=== PATIENT | male | born 1960 | race Caucasian/White ===

== ENCOUNTER 2021-04-26 21:59 | Emergency (ER) | payer BC ==
[~2021-04-26] VITALS: Ht 182.9 cm; Wt 136.1 kg
[2021-04-26] MEDS ORDERED: GLUMETZA1000 (22:26)
[2021-04-26] MEDS ORDERED: HYDROCHLOROTHIA25 M1 (22:27)
[2021-04-26] MEDS ORDERED: LOSARTAN PO (22:27)
[2021-04-26] MEDS ORDERED: LEVO-T25 MCG (22:28)
[2021-04-26] MEDS ORDERED: GLIMEPIRIDE1 MG (22:28)
[2021-04-26] MEDS ORDERED: NORVASC5 MG (22:29)
[2021-04-26] MEDS ORDERED: LOVASTATIN 20 M20 MG PO (22:29)
[2021-04-27 02:27] LABS: HEMATOCRIT 40.5 % (42.0-52.0); HEMOGLOBIN 13.6 gm/dL (14.0-18.0); MCHC 33.6 g/dL (28.0-37.0); MCV 83.4 fL (80.0-100.0); MPV 9.6 fl. (7.2-11.1); NUCLEATED RBCS 0 /100WBC; PLATELET COUNT* 240 thou/uL (150-400); RBC 4.86 mil/uL (4.50-6.00); RDW-CV 13.7 % (10.5-14.5); WBC 12.1 thou/uL (4.0-11.0)
[2021-04-27 02:34] LABS: URINE BILIRUBIN NEGATIVE (Negative); URINE BLOOD 2+ (Negative); URINE CLARITY CLEAR; URINE COLOR YELLOW; URINE GLUCOSE-RANDOM 1+ (Negative); URINE KETONES 2+ (Negative); URINE LEUKOCYTES-REFLEX NEGATIVE (Negative); URINE NITRITE-REFLEX NEGATIVE (Negative); URINE PROTEIN NEGATIVE (Negative); URINE SPECIFIC GRAVITY >= 1.030 (1.005-1.030); URINE UROBILINOGEN 0.2 E.U./dl (0.2-1.0)
[2021-04-27 02:35] LABS: CALCIUM 9.5 mg/dL (8.5-10.1); CREATININE 1.5 mg/dL (0.6-1.3); POTASSIUM 3.6 mmol/L (3.5-5.1)
[2021-04-27 02:39] LABS: ALBUMIN 4.1 g/dL (3.4-5.0); MAGNESIUM 1.6 mg/dL (1.8-2.4); TOTAL BILIRUBIN 0.4 mg/dL (<0.1-1.0); TOTAL PROTEIN 8.4 g/dL (6.4-8.2)
[2021-04-27 02:42] LABS: AMP/METHAMP Negative (Negative); BACTERIA-REFLEX 1-9 Few /HPF (None Seen); BARBITURATES Negative (Negative); BENZODIAZEPINES Negative (Negative); CASTS None Seen /LPF (None Seen); COCAINE Negative (Negative); CRYSTALS None Seen /LPF (None Seen); METHADONE Negative (Negative); MUCUS 0-3 Light strn/LPF (None Seen); OPIATES Negative (Negative); PCP Negative (Negative); SQUAMOUS 0-3 Few /LPF (0-3); THC Negative (Negative); URINE RBC >20 Many /HPF (0-2); URINE WBC-REFLEX 0-5 Rare /HPF (0-5)
[2021-04-27] MEDS ORDERED: HYDROCODON-ACE1 EAC7 PO (05:19)
[2021-04-27] MEDS ORDERED: ZOFRAN ODT4 MG PO (05:19)
[2021-04-27] MEDS ORDERED: TORADOL 10 MG T10 MG PO (05:19)
[2021-04-27] MEDS ORDERED: FLOMAX0.4 MG PO (05:22)
[2021-04-27 05:46] VITALS: BP 152/80
[2021-04-27 06:03] LABS: ABSOLUTE BASOPHILS 0.1 thou/uL (0.0-0.2); ABSOLUTE EOSINOPHILS 0.1 thou/uL (0.0-0.7); ABSOLUTE LYMPHOCYTES 0.5 thou/uL (0.8-5.3); ABSOLUTE MONOCYTES 1.1 thou/uL (0.0-1.2); ABSOLUTE NEUTROPHILS 10.3 thou/uL (1.6-8.1); PLATELET ESTIMATE ADEQUATE
--- NOTE | 2021-04-27 11:06 | EKG ---
[place] [address] ELECTROCARDIOGRAM REPORT Name: FARIHAPATELYAMILETH Room: [facility]#: [id number] Admission: 04/26/21 Attend Phys: Discharge: 04/27/21 Date of : 64 Date of Service: 04/26/212234 Report #: [id number] THIS REPORT FOR: //name// [facility] ED Test Date: 2021-04-26 Test Time: 22:35:19 Pat Name: YAMILETH GARCIA Department: Room: Gender: [employer] Machine: CELESTINE : 1960 Requested By: Bryanna Duran Order Number: [id number] MD: Sampson Solares Measurements Intervals Waldo Rate: 69 P: 36 IN: 150 QRS: 36 QRSD: 98 T: 15 QT: 391 QTc: 419 Interpretive Statements Sinus rhythm Multiple ventricular premature complexes Low voltage, precordial leads RSR' in V1 or V2, probably normal variant Baseline wander in lead(s) V3,V4 No previous ECG available for comparison Electronically Signed On 04-27-2021 11:06:33 TYPE COPYIST by Sampson Solares [email or web address] <ELECTRONICALLY SIGNED> By: Sampson Solares MD, FACC 04/27/21 [id number] Sampson Solares MD, FAC /EPI
== END 2021-04-27 05:47 | disposition home or self-care (01) ==
LOC: M.ERS 21:59
PROVIDERS: Personal Emergency Response Attendant
DX: N13.2 Hydronephrosis with renal and ureteral calculous obstruction (principal); R11.2 Nausea with vomiting, unspecified; E11.9 Type 2 diabetes mellitus without complications; E78.00 Pure hypercholesterolemia, unspecified